=== PATIENT | male | born 1955 | race Caucasian/White ===

== ENCOUNTER 2018-11-01 08:42 | Day surgery (SDC) | payer MEDICAID ==
[2018-11-01] VITALS (248 sets, daily range): BP systolic 138–165; BP diastolic 89–105; PULSE 66–89; TEMP 97.8–98.7; O2SAT 92–100
[~2018-11-01] VITALS: Ht 182.9 cm; Wt 74.0 kg
[~2018-11-01 08:42] MED LIST: CIPRO 500MG TA500 MG PO; DOXYCYCLINE 10100 MG PO; INDERAL; INDERAL 10MG10 MG PO; INDERAL 20MG20 MG PO; INTELENCE200 MG PO; ISENTRESS400 MG PO; KALETRA; LOFIBRA160 MG; NORVIR100 M1 PO; PREZISTA600 M1 PO; SIMVASTATIN10 MG PO; TRAVATAN Z 2.52.5 ML OS; ULTRAM 50MG TAB50 MG PO; ZESTRIL 20MG TA20 MG PO; ZOVIRAX400 MG; viramune
[2018-11-01 09:17] LABS: HEMATOCRIT 45.1 % (42.0-52.0); HEMOGLOBIN 15.8 g/dl (13.5-18.0); MEAN CELL VOLUME 90 fl (80.0-100.0); MEAN CORPUSCULAR HEMOGLOBIN 32 pg (27.0-31.0); MEAN CORPUSCULAR HGB CONC 35 g/dl (33.0-37.0); MEAN PLATELET VOLUME 10.8 fl (7.4-10.4); PLATELET COUNT 354 K/mm3 (130-400); RED BLOOD COUNT 4.99 M/mm3 (4.20-5.60); REDCELL DISTRIBUTION WIDTH-CV 14.1 % (11.5-14.5)
[2018-11-01 09:22] LABS: INR 1.3 (0.8-3.0); PROTHROMBIN TIME 14.4 SECONDS (9.7-12.8)
[2018-11-01 10:07] LABS: CALCIUM 9.7 mg/dL (8.4-10.2); CREATININE, serum 0.9 (0.66-1.25); POTASSIUM 3.8 mmol/L (3.4-5.0)
--- NOTE | 2018-11-01 11:16 | NUR ---
ALL MEDICATIONS GIVEN WITH VORB WITH MD. SEE MERGE FOR ALL MEDICATION TIMES. SEE MERGE FOR ALL RASS ASSESSMENTS DURING AND AFTER PROCEDURE. POSITIVE BARBEAU'S TEST IN THE RIGHT WRIST. PULSE +2.
--- NOTE | 2018-11-01 12:30 | NUR ---
Patient arrived to the floor from clinical laboratory science professor at this time. He is alert and oriented x 3. Denies any pain/discomfort. TR band intact to right wrist with 11 ml of air. IV fluids patent/infusing at 100cc/hr to left AC with Nitro @ 10mcg/min @ 6ml/hr. Patient denies any needs at this time. Very concerned about home medication that is not available at the hospital. Pharmacy contacted and will look through home medication box to identify the pill that we are looking for at this time.
--- NOTE | 2018-11-01 12:50 | NUR ---
Report received from Efra labeling machine operator RN, at 1230. Pt arrived to ICU at 1250 from energy systems laboratory director via bed. Pt A\Ox3, denies any pain. Right wrist with TR band on, 11 cc air inflated. no bleeding from site. right radial pulse +1. cap refil <3 sec on right hand. Pt on nitroglycerin gtt at 10mcg/min. Pt's at bedside. Pt and Pt's updated on plan of care. Call light in reach.
[2018-11-01] MEDS ORDERED: JULUCA 50-25 M1 EACH PO (13:48)
[2018-11-01] MEDS ORDERED: ZOCOR5 MG PO (15:38)
--- NOTE | 2018-11-01 15:45 | NUR ---
Report given to NOREEN oWrrell.
--- NOTE | 2018-11-01 16:30 | NUR ---
Dr. Schaeffer called per patients request that he be put on Zocar instead of Lipitor. Patient states the Lipitor causes muscle weakness. New orders recieved from Dr. Schaeffer to change to Zocar and pharmacy consult regarding antiplatlet thearpy.
--- NOTE | 2018-11-01 18:00 | NUR ---
TR band removed with no active bleeding noted. Started to release 3ml of air approx every 15 minutes starting at 1700. Patient denies any c/o pain/discomfort. Has been up to use urinal without any difficulty. Denies any needs at this time. Supper has been ordered
--- NOTE | 2018-11-01 20:30 | NUR ---
PT A&O X3. PT DENIES CP, BUT DOES C/O OF MINOR MUNGUIA RATING 5/10 DESCRIBED STEADY DULL ACHE. PT IS ON NITRO GTT. PT BP IS ELEVATED AT 150'S SYSTOLIC CURRENTLY.
[2018-11-02] VITALS (258 sets, daily range): BP systolic 128–175; BP diastolic 79–97; PULSE 77–91; TEMP 98.2; O2SAT 90–99
[2018-11-02 05:30] LABS: BASO # 0.1 (0.0-0.2); BASO % 0.5 % (0.0-2.0); EOS # 0.8 (0.0-0.7); EOS % 8.9 % (0-4.0); GRAN # 4.5 (1.4-6.5); GRAN % 47.4 % (42.2-75.2); HEMOGLOBIN 14.6 g/dl (13.5-18.0); LYMPH # 2.7 (1.2-3.4); MEAN CELL VOLUME 91 fl (80.0-100.0); MEAN CORPUSCULAR HEMOGLOBIN 32 pg (27.0-31.0); MEAN CORPUSCULAR HGB CONC 35 g/dl (33.0-37.0); MONO # 1.3 (0.1-0.6); PLATELET COUNT 330 K/mm3 (130-400); RED BLOOD COUNT 4.63 M/mm3 (4.20-5.60); REDCELL DISTRIBUTION WIDTH-CV 14.1 % (11.5-14.5)
[2018-11-02 05:41] LABS: ANION GAP 1 mmol/L (7-16); BLOOD UREA NITROGEN 16 mg/dL (9-20); CALCIUM 9.3 mg/dL (8.4-10.2); CARBON DIOXIDE 23 mmol/L (22-30); CHLORIDE 107 mmol/L (98-107); CREATINE KINASE < 20 U/L (55-170); CREATININE, serum 0.84 (0.66-1.25); GLUCOSE 110 mg/dL (74-106); POTASSIUM 3.6 mmol/L (3.4-5.0); SODIUM 131 mmol/L (137-145)
--- NOTE | 2018-11-02 08:00 | NUR ---
0750- NITROGLYCERINE ORDER DISCONTINUES AT 0800. TITRATE GTT DOWN FROM 10 MCG/MIN TO 5 MCG/MIN AT THIS TIME. 0800- NITROGLYCERINE DISCONTINUED AT THIS TIME
--- NOTE | 2018-11-02 09:49 | NUR ---
SW and SW student met with the patient to discuss discharge plan. The patient lives in [place] with his mother, Lien. He reports independence with ADLs and does not use any DME. The patient's PCP is Dr. Halle Leal and he receives his medications at [facility]. He reports no difficulties obtaining his meds. The patient does not have advanced directives in EMR, but he states that he does have them completed and that they are at home. The patient plans to return home upon discharge. No additional needs at this time.
--- NOTE | 2018-11-02 10:36 | NUR ---
VOIDING WITHOUT PAIN, URINE IS CLEAR AND YELLOW. NO ODOR. USING BEDSIDE URINAL.
[2018-11-02] MEDS ORDERED: LOFIBRA160 MG PO (11:45)
[2018-11-02] MEDS ORDERED: ZOCOR 10MG10 MG PO (11:46)
[2018-11-02] MEDS ORDERED: TOPROL XL 50MG50 MG PO (11:47)
[2018-11-02] MEDS ORDERED: EFFIENT10 MG PO (11:47)
[2018-11-02] MEDS ORDERED: ZESTRIL40 MG PO (11:48)
[2018-11-02] MEDS ORDERED: ASPIRIN 81M81 MG/TA2 PO (11:48)
--- NOTE | 2018-11-02 13:00 | NUR ---
DISCHARGE PACKET GIVEN OT THE PATIENT. ALL EDUCATION AND UPDATED MEDICATION LIST REVIEWED. FOLLOW UP APPT WITH REYNOLD ARGUETA REVIEWED WITH PATIENT. PATIENT AMBULATED OUT TO VISITOR ENTRANCE. HE CHOOSES TO SIT IN WAITING AREA UNTIL HIS MOTHER ARRIVES AT VISITOR ENTRANCE.
--- NOTE | 2018-11-02 13:23 | NUR ---
First visit from the director process improvement. No needs right now.
== END 2018-11-02 13:00 | disposition home or self-care (01) ==
LOC: COL.CAR 08:42 → ICU 12:50 → COL.CAR 11-02 13:00
PROVIDERS: Internal Medicine Cardiovascular Disease
DX: I25.10 Atherosclerotic heart disease of native coronary artery without angina pectoris (principal); I10 Essential (primary) hypertension; I51.7 Cardiomegaly; I34.0 Nonrheumatic mitral (valve) insufficiency; Z21 Asymptomatic human immunodeficiency virus [HIV] infection status; E78.00 Pure hypercholesterolemia, unspecified; Z86.19 Personal history of other infectious and parasitic diseases; Z87.891 Personal history of nicotine dependence; Z82.49 Family history of ischemic heart disease and other diseases of the circulatory system; Z84.89 Family history of other specified conditions
CPT/HCPCS: C1725; C1769; C1874; C1887; C9600; J0583; J1644; J2250; J3010; Q9967

== ENCOUNTER 2021-02-14 12:36 | Emergency (ER) | payer MEDICAID ==
[~2021-02-14] VITALS: Ht 182.9 cm; Wt 81.8 kg
[~2021-02-14 12:36] MED LIST changes: +ASPIRIN 81M81 MG/TA2 PO; +EFFIENT10 MG PO; +JULUCA 50-25 M1 EACH PO; +LOFIBRA160 MG PO; +TOPROL XL 50MG50 MG PO; +ZESTRIL40 MG PO; +ZOCOR 10MG10 MG PO; +ZOCOR5 MG PO
[2021-02-14 13:00] LABS: BASO # 0.1 (0.0-0.2); BASO % 0.5 % (0.0-2.0); EOS # 0.1 (0.0-0.7); EOS % 0.8 % (0-4.0); GRAN # 6.4 (1.4-6.5); GRAN % 52.4 % (42.2-75.2); HEMATOCRIT 43.3 % (42.0-52.0); HEMOGLOBIN 15.1 g/dl (13.5-18.0); LYMPH # 4.5 (1.2-3.4); LYMPH % 36.5 % (20.0-51.0); MEAN CELL VOLUME 92 fl (80.0-100.0); MEAN CORPUSCULAR HEMOGLOBIN 32 pg (27.0-31.0); MEAN CORPUSCULAR HGB CONC 35 g/dl (33.0-37.0); MONO # 1.2 (0.1-0.6); MONO % 9.6 % (1.7-9.3); PLATELET COUNT 334 K/mm3 (130-400); RED BLOOD COUNT 4.71 M/mm3 (4.20-5.60); REDCELL DISTRIBUTION WIDTH-CV 13.4 % (11.5-14.5)
[2021-02-14 13:10] LABS: ALANINE AMINOTRANSFERASE 33 U/L (4-49); ALBUMIN 4.8 gm/dL (3.5-5.0); ALKALINE PHOSPHATASE 91 U/L (50-136); ANION GAP 11 mmol/L (7-16); AST,SGOT 42 U/L (15-37); BILIRUBIN,TOTAL 0.7 mg/dL (0.0-1.0); BLOOD UREA NITROGEN 29 mg/dL (9-20); CALCIUM 11.1 mg/dL (8.4-10.2); CARBON DIOXIDE 19 mmol/L (22-30); CHLORIDE 111 mmol/L (98-107); CREATININE, serum 1.61 (0.66-1.25); GLUCOSE 146 mg/dL (74-106); POTASSIUM 4.2 mmol/L (3.4-5.0); SODIUM 141 mmol/L (137-145); TOTAL PROTEIN 8.3 gm/dL (6.4-8.2)
[2021-02-14 13:15] LABS: INR 1.3 (0.8-3.0)
[2021-02-14 13:18] LABS: PARTIAL THROMBOPLASTIN TIME 25.6 SECONDS (26.0-37.0)
[2021-02-14 13:25] LABS: TROPONIN-I < 0.012 ng/mL (0.000-0.035)
[2021-02-14] MEDS ORDERED: PRAVACHOL80 MG PO (14:03)
[2021-02-14] MEDS ORDERED: BYSTOLIC5 MG PO (14:05)
[2021-02-14] MEDS ORDERED: NORVASC 5MG5 MG/TAB PO (14:07)
[2021-02-14 14:25] VITALS: BP 148/91; PULSE 80
== END 2021-02-14 14:45 | disposition short-term general hospital (02) ==
LOC: COL.ER 12:36
PROVIDERS: Family Medicine
DX: I21.3 ST elevation (STEMI) myocardial infarction of unspecified site (principal); I25.10 Atherosclerotic heart disease of native coronary artery without angina pectoris; Z95.5 Presence of coronary angioplasty implant and graft; Z20.822 Contact with and (suspected) exposure to COVID-19; Z87.891 Personal history of nicotine dependence; Z79.82 Long term (current) use of aspirin
CPT/HCPCS: J1644; J2405; J3101; J3475

== ENCOUNTER 2021-03-04 16:18 | Outpatient (RCR) | payer MEDICAID ==
[~2021-03-04 16:18] MED LIST changes: +BYSTOLIC5 MG PO; +NORVASC 5MG5 MG/TAB PO; +PRAVACHOL80 MG PO
== END 2021-03-13 11:40 | disposition home or self-care (01) ==
LOC: COL.CR 16:18
DX: Z48.812 Encounter for surgical aftercare following surgery on the circulatory system (principal); Z98.61 Coronary angioplasty status; I21.9 Acute myocardial infarction, unspecified

== ENCOUNTER 2022-05-19 08:14 | Day surgery (SDC) | payer MEDICARE, MEDICAID ==
[2022-05-19] VITALS (12 sets, daily range): BP systolic 81–129; BP diastolic 65–83; PULSE 58–74; TEMP 98.2
[~2022-05-19] VITALS: Ht 182.9 cm; Wt 82.9 kg
[~2022-05-19 08:14] MED LIST changes: -ZOVIRAX400 MG; +ZOVIRAX400 MG PO
[2022-05-19 09:23] LABS: HEMATOCRIT 42.8 % (42.0-52.0); HEMOGLOBIN 14.7 g/dl (13.5-18.0); MEAN CELL VOLUME 94 fl (80.0-100.0); MEAN CORPUSCULAR HEMOGLOBIN 32 pg (27-31); MEAN CORPUSCULAR HGB CONC 34 g/dl (33.0-37.0); MEAN PLATELET VOLUME 10.6 fl (7.4-10.4); PLATELET COUNT 339 K/mm3 (130-400); RED BLOOD COUNT 4.56 M/mm3 (4.20-5.60); REDCELL DISTRIBUTION WIDTH-CV 13.5 % (11.5-14.5)
[2022-05-19 09:29] LABS: INR 1.3 (0.8-3.0); PROTHROMBIN TIME 14.7 SECONDS (9.7-12.8)
[2022-05-19 09:32] LABS: PARTIAL THROMBOPLASTIN TIME 33.1 SECONDS (26.0-37.0)
[2022-05-19] MEDS ORDERED: ENTRESTO 49 MG1 EACH PO (09:44)
[2022-05-19] MEDS ORDERED: PLAVIX 75MG TAB75 MG PO (09:45)
[2022-05-19] MEDS ORDERED: ASPIRIN 81M81 MG/TA2 PO (09:45)
[2022-05-19] MEDS ORDERED: SINGULAIR 110 MG/TAB PO (09:45)
[2022-05-19] MEDS ORDERED: NORVASC 5MG5 MG/TAB PO (09:46)
[2022-05-19] MEDS ORDERED: TOPROL XL 25MG25 MG PO (09:47)
[2022-05-19] MEDS ORDERED: CRESTOR40 MG PO (09:47)
[2022-05-19] MEDS ORDERED: TYLENOL 500MG500 MG PO (09:48)
[2022-05-19 09:49] LABS: CALCIUM 9.4 mg/dL (8.4-10.2); CREATININE, serum 0.99 mg/dL (0.72-1.25); POTASSIUM 4.4 mmol/L (3.5-4.5)
--- NOTE | 2022-05-19 10:31 | NUR ---
Pt to procedure,report to Nancy jacob.
--- NOTE | 2022-05-19 10:47 | NUR ---
SEE MERGE FOR VITAL SIGNS, ASSESSMENTS, INTERVENTIONS AND MEDICATIONS GIVEN.
--- NOTE | 2022-05-19 14:30 | NUR ---
All air removed from right radial access in 2-3 ml incriments.No bleeding observed at site,Gauze and coban applied.
--- NOTE | 2022-05-19 14:46 | NUR ---
Discharge instructions given to pt.Pt verbalizes understanding.
--- NOTE | 2022-05-19 15:00 | NUR ---
Pt escorted out via wheelchair by this nurse.
== END 2022-05-19 18:07 ==
LOC: COL.CAR 08:14
PROVIDERS: Internal Medicine Cardiovascular Disease
DX: R94.39 Abnormal result of other cardiovascular function study (principal); I42.9 Cardiomyopathy, unspecified; I10 Essential (primary) hypertension
CPT/HCPCS: C1769; J1644; J2250; J3010; Q9967

== ENCOUNTER 2024-03-16 14:20 | Emergency (ER) | payer MEDICARE, MEDICAID ==
[~2024-03-16] VITALS: Ht 182.9 cm; Wt 77.3 kg
[~2024-03-16 14:20] MED LIST changes: +CRESTOR40 MG PO; +ENTRESTO 49 MG1 EACH PO; +PLAVIX 75MG TAB75 MG PO; +SINGULAIR 110 MG/TAB PO; +TOPROL XL 25MG25 MG PO; +TYLENOL 500MG500 MG PO
[2024-03-16 14:30] VITALS: BP 115/73; TEMP 98.3
[2024-03-16] MEDS ORDERED: DOXYCYCLINE 10100 MG PO (15:37)
[2024-03-16] MEDS ORDERED: Doxycycline Monohydrate 100 MG CAP PO ONE (15:45)
[2024-03-16 16:28] VITALS: PULSE 88
== END 2024-03-16 16:33 | disposition home or self-care (01) ==
LOC: COL.ER 14:20
DX: L03.116 Cellulitis of left lower limb (principal)